=== PATIENT | female | born 1985 | race Caucasian/White ===

== ENCOUNTER → 2018-01-24 08:34 | Outpatient (CLI) | payer OTHER, SELFPAY ==
--- NOTE | 2018-01-24 08:39 | DI.RAD.S_ITS ---
PROCEDURE: XR WRIST RT MIN 3V INDICATIONS: 32 y/o F w/ R ulnar-sided wrist pain x 1 mo. TECHNIQUE: 4 views of the wrist were acquired. COMPARISON: None. FINDINGS: Bones: No fractures or dislocations. No suspicious bony lesions. Scaphoid view: No fracture identified. Soft tissues: No suspicious soft tissue calcifications. IMPRESSION: No fracture Dictated by: Mitchel Dumont M.D. on 01/24/2018 at 9:10 Approved by: Mitchel Dumont M.D. on 01/24/2018 at 9:11
== END ==
PROVIDERS: Family Provider Family Medicine; PCP Family Medicine; Visit Provider Physician Assistant
DX: M25.531 Pain in right wrist (principal)
CPT/HCPCS: 73110

== ENCOUNTER → 2019-01-19 09:56 | Outpatient (CLI) | payer OTHER, SELFPAY ==
[2019-01-19 11:28] LABS: Add Manual Diff / Slide Review NO; Basophils Absolute Auto 0 /uL (0-100); Basophils Percent Auto 0.8 % (0-2); Eosinophils Absolute Auto 0 /uL (0-450); Eosinophils Percent Auto 1.1 % (2-4); Hematocrit 39.6 % (36-46); Hemoglobin 13.4 g/dL (12.0-16.0); Lymphocytes Absolute Auto 1400 /uL (1100-4500); Lymphocytes Percent Auto 36.1 % (25-40); Mean Corpuscular HGB Conc 33.9 % (30-36); Mean Corpuscular Hemoglobin 31.2 PG (26-34); Mean Corpuscular Volume 92.1 fL (80-100); Monocytes Absolute Auto 600 /uL (0-900); Monocytes Percent Auto 14.5 % (3-14); Neutrophils Absolute Auto 1900 /uL (1500-7000); Neutrophils Percent Auto 47.5 % (50-75); Platelet Count 241 X10^3/uL (150-400)
[2019-01-19 11:42] LABS: Protein (Total) Urine Random 15 mg/dL (0-12)
[2019-01-19 11:45] LABS: Alanine Aminotransferase 11 IU/L (9-52); Albumin 4.3 g/dL (3.5-5.0); Albumin Globulin Ratio 1.6 (1.0-2.8); Alkaline Phosphatase 36 U/L (38-126); Aspartate Aminotransferase 19 IU/L (14-36); BUN Creatinine Ratio 14.3 (6-22); Bilirubin Total 0.6 mg/dL (0.2-1.3); Blood Urea Nitrogen 10 mg/dL (7-17); Calcium 9.5 mg/dL (8.4-10.2); Carbon Dioxide 28 mmol/L (22-32); Chloride 103 mmol/L (98-107); Estimated Glomerular Filt Rate > 60.0 mL/min (>60); Globulin 2.7 g/dL (1.7-4.1); Glucose 74 mg/dL (70-100); HEMOLYSIS < 15 (0-50); Lipase 97 U/L (23-300); Potassium 3.9 mmol/L (3.4-5.1); Sodium 141 mmol/L (137-145)
[2019-01-19 11:47] LABS: HEMOLYSIS < 15 (0-50); Iron 147 ug/dL (37-170)
[2019-01-19 11:55] LABS: Vitamin D 25 Hydroxy (D3) 58.1 ng/mL (30.0-100.0)
[2019-01-19 11:58] LABS: Percent Iron Saturation 40 % (15-50); Total Iron Binding Capacity 371 ug/dL (265-497); Transferrin 316 mg/dL (206-381)
[2019-01-19 12:31] LABS: Vitamin B12 349 pg/mL (239-931)
[2019-01-19 14:34] LABS: Creatinine Urine Random 75.8 mg/dL; Protein Creatinine Ratio Urine 0.19 GRAM/24H
== END ==
PROVIDERS: PCP Student in an Organized Health Care Education/Training Program; Visit Provider Student in an Organized Health Care Education/Training Program
DX: D50.9 Iron deficiency anemia, unspecified (principal); E28.2 Polycystic ovarian syndrome; R10.9 Unspecified abdominal pain; E55.9 Vitamin D deficiency, unspecified; R53.83 Other fatigue
CPT/HCPCS: 36415; 80053; 82306; 82570; 82607; 83540; 83550; 83690; 84156; 85025

== ENCOUNTER → 2019-01-20 07:47 | Outpatient (CLI) | payer OTHER, SELFPAY ==
--- NOTE | 2019-01-20 07:49 | DI.US.S_ITS ---
PROCEDURE: US RENAL COMPLETE INDICATIONS: FLANK PAIN TECHNIQUE: Real-time scanning was performed of the kidneys and bladder, with image documentation. COMPARISON: [facility], CT, ABDOMEN/PELVIS WITH CONTRAST, 11/07/2010, 10:24. FINDINGS: Kidneys: Kidneys are normal in size. Right kidney measures 11.6 cm long; left kidney measures 10.9 cm long. Right renal cortical thickness is 1.2 cm; left renal cortical thickness is 1.7 cm. Renal cortical echotexture is normal. No hydronephrosis or nephrolithiasis. No suspicious solid mass lesions. Bladder: Pre-void bladder volume is 74 mL. Post-void residual is 0 mL. Pre-void images demonstrate no intraluminal masses or stones. On pre-void images, bilateral ureteral jets are noted with color Doppler interrogation. Miscellaneous: No free pelvic fluid. IMPRESSION: Normal sonographic appearance of the kidneys. No hydronephrosis. No kidney stones seen. Dictated by: Tre RUTH Interpreted: Robert Gilman MD on 01/20/2019 at 9:30 Approved by: Robert Gilman M.D. on 01/20/2019 at 11:47
== END ==
PROVIDERS: PCP Student in an Organized Health Care Education/Training Program; Visit Provider Student in an Organized Health Care Education/Training Program
DX: R10.9 Unspecified abdominal pain (principal); D50.9 Iron deficiency anemia, unspecified; R53.83 Other fatigue
CPT/HCPCS: 76770

== ENCOUNTER → 2020-01-24 17:10 | Outpatient (CLI) | payer OTHER, SELFPAY ==
--- NOTE | 2020-01-24 17:14 | DI.RAD.S_ITS ---
PROCEDURE: XR FOOT RT MIN 3V INDICATIONS: R foot pain w/ambulation suspect stress Fx vs sprain TECHNIQUE: 3 views of the foot were acquired. COMPARISON: None. FINDINGS: Bones: No fractures or dislocations. No suspicious bony lesions. Soft tissues: No tibiotalar joint effusion. Achilles tendon appears normal. IMPRESSION: No radiographic evidence of stress fracture. No findings to explain patient's symptoms. Dictated by: Johann Yepez M.D. on 01/24/2020 at 17:42 Approved by: Johann Yepez M.D. on 01/24/2020 at 17:42
== END ==
PROVIDERS: PCP Student in an Organized Health Care Education/Training Program; Referring Provider Student in an Organized Health Care Education/Training Program; Visit Provider Student in an Organized Health Care Education/Training Program
DX: M79.671 Pain in right foot (principal)
CPT/HCPCS: 73630

== ENCOUNTER → 2020-08-18 08:44 | Outpatient (CLI) | payer OTHER, SELFPAY ==
--- NOTE | 2020-08-18 08:45 | DI.US.S_ITS ---
LIMITED ULTRASOUND OF LEFT BREAST AND AXILLA: 08/18/2020 CLINICAL: Palpable left breast lump. Comparison is made to exams dated: 08/18/2020 mammogram, 11/24/2012, and 11/24/2012 mammogram - [facility]. Real-time ultrasound of the left breast 12 o'clock, and axilla regions was performed. George scale images of the real-time examination were reviewed. No significant abnormalities were seen sonographically in the left breast in the region of the palpable abnormality or in the left axilla. IMPRESSION: NEGATIVE There is no sonographic evidence of malignancy at site of palpable abnormality. A 5 year screening mammogram is recommended at the age of 39. Exam findings were conveyed to the patient. Patient is advised to monitor for significant change. Clinical follow-up as needed. This exam was interpreted at Station ID: [id number]. Electronically Signed By: Robert Gilman M.D. slc/:08/18/2020 11:00:48 letter sent: Normal Exam Ultrasound BI-RADS: 1 Negative
--- NOTE | 2020-08-18 08:45 | DI.MG.S_ITS ---
BILATERAL DIGITAL DIAGNOSTIC MAMMOGRAM 3D/2D: 08/18/2020 CLINICAL: Dense breast, Breast lump. Comparison is made to exams dated: 11/24/2012 mammogram and 12/18/2011 mammogram - [facility]. The tissue of both breasts is extremely dense, which lowers the sensitivity of mammography. No significant masses, calcifications, or other findings are seen in either breast. IMPRESSION: INCOMPLETE: NEEDS ADDITIONAL IMAGING EVALUATION No mammographic evidence of malignancy. A targeted ultrasound of the left breast palpable abnormality is recommended and will immediately follow. This exam was interpreted at Station ID: [id number]. NOTE: For mammograms, a report in lay terms will be sent to the patient. Approximately 15% of breast malignancies will not be visualized mammographically. In the management of a palpable breast mass, a negative mammogram must not discourage biopsy of a clinically suspicious lesion. Electronically Signed By: Robert Gilman M.D. slc/:08/18/2020 10:56:35 ACR BI-RADS Category 0: Incomplete [id number]
== END ==
PROVIDERS: PCP Student in an Organized Health Care Education/Training Program; Referring Provider Obstetrics & Gynecology; Visit Provider Obstetrics & Gynecology
DX: R92.2 Inconclusive mammogram (principal); N63.20 Unspecified lump in the left breast, unspecified quadrant
CPT/HCPCS: 76642; 77066; G0279

== ENCOUNTER → 2021-05-01 12:17 | Outpatient (CLI) | payer OTHER, SELFPAY ==
[2021-05-01 12:53] LABS: Hematocrit 38.5 % (36-46); Hemoglobin 12.9 g/dL (12.0-16.0); Mean Corpuscular HGB Conc 33.4 % (30-36); Mean Corpuscular Hemoglobin 30.8 PG (26-34); Mean Corpuscular Volume 92.2 fL (80-100); Platelet Count 249 X10^3/uL (150-400); Red Blood Cell Count 4.17 X10^6/uL (4.0-5.2); Red Cell Distribution Width 12.8 % (11.6-14.8); White Blood Cell Count 4.4 X10^3/uL (4.5-11.0)
[2021-05-01 13:56] LABS: HEMOLYSIS < 15 (0-50); Iron 133 ug/dL (37-170)
[2021-05-01 13:57] LABS: Cholesterol 190 mg/dL (140-199); HDL Cholesterol 70 mg/dL (40-60); LDL Cholesterol Calculated 103 mg/dL (<100); Triglycerides 85 mg/dL (35-150)
[2021-05-01 14:09] LABS: Percent Iron Saturation 38 % (15-50); Total Iron Binding Capacity 349 ug/dL (265-497); Transferrin 273 mg/dL (206-381)
[2021-05-01 14:34] LABS: Ferritin 16 ng/mL (6-137)
== END ==
PROVIDERS: PCP Student in an Organized Health Care Education/Training Program; Referring Provider Student in an Organized Health Care Education/Training Program; Visit Provider Student in an Organized Health Care Education/Training Program
DX: D50.9 Iron deficiency anemia, unspecified (principal); Z13.220 Encounter for screening for lipoid disorders
CPT/HCPCS: 36415; 80061; 82728; 83540; 83550; 85027

== ENCOUNTER → 2021-05-17 16:09 | Outpatient (CLI) | payer OTHER, SELFPAY ==
--- NOTE | 2021-05-17 16:10 | DI.US.S_ITS ---
PROCEDURE: US ABDOMEN LIMITED INDICATIONS: Inguinal hernia TECHNIQUE: Real-time focused scanning was performed of the abdomen, with image documentation. COMPARISON: [facility], CT, ABDOMEN/PELVIS WITH CONTRAST, 11/07/2010, 10:24. FINDINGS: At the site of clinical concern within the right groin, there is a small apparent reducible hernia which contains fat. The hernia defect is approximately 5 mm. IMPRESSION: Small fat containing, reducible hernia seen at the site of clinical concern. Please consider surgical consultation. If it would be helpful for clinical management decision making in this patient with this given history, please consider a dedicated CT of the pelvis with at least IV contrast for further evaluation. Dictated by: Jario Avelar M.D. on 05/17/2021 at 17:02 Approved by: Jairo Avelar M.D. on 05/17/2021 at 17:04
== END ==
PROVIDERS: PCP Student in an Organized Health Care Education/Training Program; Referring Provider Obstetrics & Gynecology; Visit Provider Obstetrics & Gynecology
DX: K40.90 Unilateral inguinal hernia, without obstruction or gangrene, not specified as recurrent (principal)
CPT/HCPCS: 76705

== ENCOUNTER → 2021-06-29 13:36 | Outpatient (CLI) | payer OTHER, SELFPAY ==
[2021-06-29 14:36] LABS: COVID19 -Nasal RAPID Negative (Negative)
== END ==
PROVIDERS: PCP Student in an Organized Health Care Education/Training Program; Visit Provider Surgery
DX: Z01.812 Encounter for preprocedural laboratory examination (principal); Z20.822 Contact with and (suspected) exposure to COVID-19
CPT/HCPCS: 87635; C9803

== ENCOUNTER 2021-07-02 06:26 | Day surgery (SDC) | payer OTHER, SELFPAY ==
[2021-06-28 12:53] VITALS: BMI 22.4
[2021-07-02] VITALS (11 sets, daily range): BP systolic 98–116; BP diastolic 52–70; PULSE 55–78; RESP 10–16; TEMP 36.3–36.8; O2SAT 94–100; BMI 22.4
[2021-07-02] MEDS: LACTATED RINGERS 1,000 ML 42 ML IV ×2 (07:30→09:32)
--- NOTE | 2021-07-02 07:32 | PM.PREOP ---
Pre-operative Note COVID-19 COVID-19 status: Negative Result date/Date tested (Pos, Neg/Pending): 06/29/21 Interval Note History & Physical reviewed/Exam performed by Physician: Yes Changes to H&P: No ASA Class (for procedural sedation): I
--- NOTE | 2021-07-02 07:34 | PM.HP.1 ---
History of Present Illness History of Present Illness Date Patient Seen: 07/02/21 Time Patient Seen: 07:34 Chief complaint: Right inguinal hernia Narrative: 35 year old woman who noticed a right inguinal bulge a few months ago. It is reducible. Also believes she feels a tugging sensation from the left groin. She has had an umbilical hernia repair in the past. Mesh was not placed at that time. Patient History Medical History (Updated 06/28/21 @ 13:02 by Roya Brown RN) Adverse effect of anesthesia Alopecia Bilateral breast lump Chronic sinusitis Coracoclavicular (ligament) sprain (2012) Depression Headache, migraine Iron deficiency anemia PCOS (polycystic ovarian syndrome) Plantar warts Sprain of shoulder, left (2012) Surgical History (Updated 06/28/21 @ 13:02 by Roya Brown RN) Hx of hernia repair (09/2015) Hx of tonsillectomy (~2009) Hx of wisdom tooth extraction Family & Social History Family History Father Hypertension Mother No problems noted. Tobacco & Substance use: Smoking Status Never smoker alcohol intake current Substance Use Type does not use Meds Home Medications and Allergies Home Medications Medication Instructions Recorded Confirmed Type [FIBER] #0 10/13/17 06/26/21 History [HAIR VITAMINS] #0 10/13/17 06/26/21 History calcium carbonate 600 mg-vitamin 1 cap PO cap 12/25/17 06/26/21 History D3 10 mcg (400 unit) capsule (Calcium 600 with Vitamin D3) Necon 0.5/35 (28) 0.5 mg-35 mcg 1 tab PO DAILY #90 tab NS 04/27/21 07/02/21 Rx tablet (norethindrone-ethin estradiol) fluocinonide 0.05 % topical 1 applic TOPICAL .3 time weekly ml 05/01/21 07/02/21 History solution ketoconazole 2 % shampoo 1 applic TOPICAL 2XW 05/01/21 06/28/21 History tretinoin TOPICAL 05/01/21 06/26/21 History vitamin B complex (B 1 tab PO DAILY 05/01/21 06/28/21 History Complex-Vitamin B12) Allergies Allergy/AdvReac Type Severity Reaction Status Date / Time No Known Drug Allergies Allergy Verified 07/02/21 07:08 Exam Vital Signs (past 8 hours): - 07/02/21 07:12 Temperature 98 F Pulse Rate 61 Respiratory Rate 16 Blood Pressure 111/65 Pulse Oximetry 98 Oxygen Delivery Method Room Air Const General: healthy appearing Eyes General: appearance normal, both eyes and all related structures Resp Effort & Inspection: normal respiratory effort GI Other: Reducible right inguinal hernia Small infraumbilical surgical scar Assessment & Plan Assessment and plan (1) Inguinal hernia: Qualifiers: Obstruction and gangrene presence: without obstruction or gangrene Laterality: unilateral Recurrence: non-recurrent Qualified Code(s): K40.90 - Unilateral inguinal hernia, without obstruction or gangrene, not specified as recurrent Status: Acute Plan Laparoscopic right, possible left inguinal hernia repair with mesh. She would like to proceed. Time Spent With Patient Critical Care time: I spent a total of [] minutes of critical care time on this patient's care today; this time is exclusive of procedural time.
[2021-07-02] MEDS: ACETAMINOPHEN 325 MG TABLET 975 MG PO (07:41)
--- NOTE | 2021-07-02 07:42 | SUR.PREOP ---
Pt states she took Exedrin for a migraine 07/01/21 at 0800. Pt states she gets migraines from concussions.
--- NOTE | 2021-07-02 07:47 | SUR.PREOP ---
Urine test negative.
[2021-07-02] MEDS: CEFAZOLIN 2 GM/20 ML SYRINGE IV (08:05)
--- NOTE | 2021-07-02 08:19 | SUR.OPER ---
Supine on padded OR bed, head on pillow, arms padded and tucked at sides, legs uncrossed, safety belt at thigh, tape over blanket over lower legs .
[2021-07-02] MEDS: BUPIVACAINE 0.5% W/ EPI (PF) 30 ML VIAL INJ (08:28)
--- NOTE | 2021-07-02 09:43 | P.OP_ITS ---
Operative Date/Time/Diagnoses Date of procedure: 07/02/21 Time of procedure: 09:43 Pre-op diagnosis: Right inguinal hernia Post-op diagnosis: same Procedure & Clinicians Procedure: Laparoscopic right inguinal hernia repair with mesh Same procedure as scheduled: Yes Indications: Right inguinal hernia Surgeon: Jose D Burnett Click Yes if Unassisted: No Anesthesia Type: General Operative Notes Findings: Small indirect defect Estimated Blood Loss (mL): 10 Procedure in detail: The patient was given preoperative antibiotics. The patient was brought to the operating room, placed on the table in the supine position with the arms tucked and general anesthesia was induced. The abdomen was prepped and draped in the usual fashion. A time-out was performed. A 1 cm curvilinear infraumbilical incision was created and dissection was carried down to the base of the umbilical stalk. The umbilical stalk was grasped with a Opal clamp to elevate the abdominal wall. The fascia was scored transversely with cautery. A Peon clamp was used to mcnamara the peritoneum. The Shawn port was placed and the abdomen was insufflated to 15 mmHg. The camera was inserted, there was no evidence of any injury from the entry. There is a small indirect right inguinal hernia and no left inguinal hernia. 5 mm ports were placed under direct vision in the mid left and mid right abdomen. The patient was positioned in steep Trendelenburg. We created right peritoneal flap. The peritoneum was dissected off of the round ligament and the Jaxon's ligament was exposed. A a medium right Bard mesh was brought in and placed over the defect with the medial edge against Jaxon's ligament. We then closed the peritoneal flap with a running 3- 0 barbed suture. We took 1 last look around the abdomen and saw no other abnormalities. The suture was removed and accounted for. The 5 mm ports were removed under direct vision. The abdomen was desufflated. The Shawn port was removed. Additional local was injected into the fascia and the infraumbilical fascial incision was closed with 2 interrupted 0 Vicryl sutures. The skin incisions were closed with 4 Monocryl, Steri-Strips and Band-Aids. Post-operative Condition: stable Disposition: PACU
[2021-07-02] MEDS: ONDANSETRON 4 MG/2 ML INJ IV ×2 (10:03→10:32)
--- NOTE | 2021-07-02 11:10 | SUR.PHASEII ---
Family updated on pt status.
--- NOTE | 2021-07-02 12:45 | SUR.PHASEII ---
1245 Has been out of surgery for two hours. Was queasy for awhile but finally letting up. Getting dressed to send home
--- NOTE | 2021-07-02 16:09 | P.OP_ITS ---
Operative Date/Time/Diagnoses Date of procedure: 07/02/21 Time of procedure: 16:09 Pre-op diagnosis: Left inguinal hernia Post-op diagnosis: same Procedure & Clinicians Procedure: Laparoscopic left inguinal hernia repair with mesh Same procedure as scheduled: Yes Indications: Left inguinal hernia Surgeon: Jose D Burnett Click Yes if Unassisted: Yes Anesthesia Type: General Operative Notes Estimated Blood Loss (mL): 10 Procedure in detail: The patient was given preoperative antibiotics. The patient was brought to the operating room, placed on the table in the supine position with the arms tucked and general anesthesia was induced. The abdomen was prepped and draped in the usual fashion. A time-out was performed. A 1 cm curvilinear infraumbilical incision was created and dissection was carried down to the base of the umbilical stalk. The umbilical stalk was grasped with a Opal clamp to elevate the abdominal wall. The fascia was scored transversely with cautery. A Peon clamp was used to mcnamara the peritoneum. The Shawn port was placed and the abdomen was insufflated to 15 mmHg. The camera was inserted, there was no evidence of any injury from the entry. There was a indirect left inguinal hernia. 5 mm ports were placed under direct vision in the mid left and mid right abdomen. The patient was positioned in steep Trendelenburg. We created l eft peritoneal flap. The peritoneum was dissected off of the cord and vas deferens and the Jaxon's ligament was exposed. A a medium right Bard mesh was brought in and placed over the defect with the medial edge against Jaxon's ligament. We then closed the peritoneal flap with a running 3-0 barbed suture. We took one last look around the abdomen and saw no other abnormalities. The suture was removed and accounted for. The 5 mm ports were removed under direct vision. The abdomen was desufflated. The Shawn port was removed. Additional local was injected into the fascia and the infraumbilical fascial incision was closed with 2 interrupted 0 Vicryl sutures. The skin incisions were closed with 4 Monocryl, Steri-Strips and Band-Aids. Post-operative Condition: stable Disposition: PACU
== END 2021-07-02 12:55 | disposition home or self-care (01) ==
PROVIDERS: PCP Student in an Organized Health Care Education/Training Program; Referring Provider Surgery; Visit Provider Surgery
PROC: 0YQ54ZZ Repair Right Inguinal Region, Percutaneous Endoscopic Approach (ICD-10-PCS; CPT 49650; principal; 2021-07-02 07:45)
DX: K40.90 Unilateral inguinal hernia, without obstruction or gangrene, not specified as recurrent (principal)
CPT/HCPCS: 49650; C1781; J0330; J0690; J1100; J2405; J2704; J3010

== ENCOUNTER → 2021-07-06 09:26 | Outpatient (CLI) | payer OTHER, SELFPAY ==
[2021-07-06 09:56] LABS: Appearance Urine UA CLEAR; Bilirubin Urine UA NEGATIVE (NEGATIVE); Color Urine UA YELLOW; Glucose Urine UA NEGATIVE (Negative); Ketones Urine UA NEGATIVE (NEGATIVE); Leukocyte Esterase Urine UA 1+ (NEGATIVE); Nitrite Urine UA NEGATIVE (Negative); Occult Blood Urine UA TRACE-INTACT (Negative); Protein Urine UA NEGATIVE (Negative); Specific Gravity Urine UA 1.015 (1.000-1.035); Urobilinogen Urine UA 0.2 E.U./dL (0.2)
[2021-07-06 10:10] LABS: RBC Urine 0-1/HPF (0-5/HPF); WBC Urine 5-10/HPF (0-5/HPF)
[2021-07-06 10:11] LABS: Bacteria Urine Many (>30); Culture Indicated Urine Specimen Cultured; Squamous Epithelial Cell Urine 1-5 /HPF (0-5/HPF)
== END ==
PROVIDERS: PCP Student in an Organized Health Care Education/Training Program; Referring Provider Student in an Organized Health Care Education/Training Program; Visit Provider Student in an Organized Health Care Education/Training Program
DX: R10.9 Unspecified abdominal pain (principal)
CPT/HCPCS: 81001; 87086

== ENCOUNTER → 2021-07-19 16:06 | Outpatient (CLI) | payer OTHER, SELFPAY ==
[2021-07-19 17:06] LABS: Appearance Urine UA CLEAR; Bilirubin Urine UA NEGATIVE (NEGATIVE); Color Urine UA YELLOW; Glucose Urine UA NEGATIVE (Negative); Ketones Urine UA NEGATIVE (NEGATIVE); Leukocyte Esterase Urine UA NEGATIVE (NEGATIVE); Nitrite Urine UA NEGATIVE (Negative); Occult Blood Urine UA 2+ (Negative); Protein Urine UA NEGATIVE (Negative); Urobilinogen Urine UA 0.2 E.U./dL (0.2)
[2021-07-19 17:22] LABS: Amorphous Sediment Urine 2+; Bacteria Urine Few (2-10); Culture Indicated Urine Cult Not Indicated; RBC Urine 1-5/HPF (0-5/HPF); Squamous Epithelial Cell Urine 5-10 /HPF (0-5/HPF); WBC Urine None Seen (0-5/HPF)
== END ==
PROVIDERS: PCP Student in an Organized Health Care Education/Training Program; Referring Provider Student in an Organized Health Care Education/Training Program; Visit Provider Student in an Organized Health Care Education/Training Program
DX: N39.0 Urinary tract infection, site not specified (principal)
CPT/HCPCS: 81001

== ENCOUNTER → 2021-10-13 10:29 | Outpatient (CLI) | payer OTHER, SELFPAY ==
[2021-10-13 10:52] LABS: Appearance Urine UA SL CLOUDY; Bilirubin Urine UA NEGATIVE (NEGATIVE); Color Urine UA YELLOW; Glucose Urine UA NEGATIVE (Negative); Ketones Urine UA NEGATIVE (NEGATIVE); Leukocyte Esterase Urine UA NEGATIVE (NEGATIVE); Nitrite Urine UA NEGATIVE (Negative); Occult Blood Urine UA 1+ (Negative); Protein Urine UA NEGATIVE (Negative); Specific Gravity Urine UA 1.025 (1.000-1.035); Urobilinogen Urine UA 0.2 E.U./dL (0.2)
[2021-10-13 11:05] LABS: Amorphous Sediment Urine 1+; Bacteria Urine Many (>30); Calcium Oxalate Crystals Urine Occasional; Culture Indicated Urine Specimen Cultured; Mucus Urine 2+ (Negative); RBC Urine 1-5/HPF (0-5/HPF); Squamous Epithelial Cell Urine 1-5 /HPF (0-5/HPF); WBC Urine 10-30/HPF (0-5/HPF)
== END ==
PROVIDERS: PCP Student in an Organized Health Care Education/Training Program; Referring Provider Student in an Organized Health Care Education/Training Program; Visit Provider Student in an Organized Health Care Education/Training Program
DX: R10.9 Unspecified abdominal pain (principal)
CPT/HCPCS: 81001; 87086

== ENCOUNTER → 2021-11-27 09:35 | Outpatient (CLI) | payer OTHER, SELFPAY ==
--- NOTE | 2021-11-27 09:40 | DI.CT.S_ITS ---
PROCEDURE: CT ABDOMEN PELVIS WO CON INDICATIONS: Hematuria TECHNIQUE: Axial sections were acquired from the lung bases to the pubic symphysis. Coronal and sagittal reformats were performed. For radiation dose reduction, the following was used: automated exposure control, adjustment of mA and/or kV according to patient size. COMPARISON: [facility], CT, ABDOMEN/PELVIS WITH CONTRAST, 11/07/2010, 10:24. FINDINGS: Image quality: Excellent. Lung bases: A 6 mm pleural-based nodules present in the posteromedial right lower lobe, stable. Lung bases are otherwise clear. Heart: Normal size heart. No hiatal hernia. URINARY: Right Kidney: No stones or hydronephrosis. Right Ureter: No hydroureter. Left Kidney: No stones or hydronephrosis. Left Ureter: No hydroureter. Bladder: Decompressed urinary bladder. No calcifications visible. ABDOMEN: Liver: The liver is normal size and attenuation. There is a 9 mm cyst in the anterior left lobe. Gallbladder: Normal. Biliary ducts: Nondilated. Pancreas: Normal contour. Spleen: Normal size. Adrenal Glands: No nodules. Stomach and Bowel: Stomach, small bowel loops, and colon are unremarkable. Normal appendix. Peritoneum: No abnormal intraperitoneal fluid. No free air. Ventral Wall: No hernia. Abdominal Nodes: No enlarged retroperitoneal or mesenteric lymph nodes. Vessels: Aorta and inferior vena cava are normal in size. PELVIS: Pelvic Organs: Normal uterus and ovaries. Bladder: Normal wall thickness. Pelvic Nodes: No suspicious adenopathy. Miscellaneous: No soft tissue mass or inguinal hernias. Bones: Exaggerated lower lumbar lordosis. Otherwise normal osseous structures. IMPRESSION: 1. No urinary calcifications or obstructive uropathy. Dictated by: Cami Carranza M.D. on 11/28/2021 at 9:11 Approved by: Cami Carranza M.D. on 11/28/2021 at 9:35
== END ==
PROVIDERS: PCP Student in an Organized Health Care Education/Training Program; Referring Provider Student in an Organized Health Care Education/Training Program; Visit Provider Student in an Organized Health Care Education/Training Program
DX: R10.9 Unspecified abdominal pain (principal); R31.9 Hematuria, unspecified; R91.8 Other nonspecific abnormal finding of lung field; K76.89 Other specified diseases of liver
CPT/HCPCS: 74176

== ENCOUNTER → 2022-09-20 14:32 | Outpatient (CLI) | payer OTHER, SELFPAY ==
--- NOTE | 2022-09-20 14:33 | DI.CT.S_ITS ---
PROCEDURE: CT ABDOMEN PELVIS W CON INDICATIONS: Right groin bulge TECHNIQUE: After the administration of intravenous contrast, axial sections acquired from the lung bases to the pubic symphysis. Coronal and sagittal reformats were performed. For radiation dose reduction, the following was used: automated exposure control, adjustment of mA and/or kV according to patient size. COMPARISON: [facility], CT, ABDOMEN/PELVIS WITH CONTRAST, 11/07/2010, 10:24. FINDINGS: Image quality: Excellent. Lung bases: Unremarkable. Heart: No significant findings. ABDOMEN: Liver: Subcentimeter hypoattenuating lesions, too small to characterize by CT, but probably small cysts. Gallbladder: Unremarkable. Biliary ducts: Unremarkable. Pancreas: Unremarkable. Spleen: Unremarkable. Adrenal Glands: Unremarkable. Kidneys and Ureters: Unremarkable. Stomach and Bowel: Stomach, small bowel loops, and colon are unremarkable. Peritoneum: No abnormal intraperitoneal fluid. No free air. Ventral Wall: No hernias. Abdominal Nodes: No retroperitoneal or mesenteric adenopathy by size criteria. Vessels: Aorta and inferior vena cava are normal in size. PELVIS: Pelvic Organs: Unremarkable. Bladder: Unremarkable. Pelvic Nodes: No enlarged lymph nodes. Miscellaneous: No hernias are seen. Bones: No aggressive osseous abnormality. Bone island in the right pelvic wing and T10 vertebral body. IMPRESSION: No acute findings to explain the patient's right groin bulge. No hernia on this exam. Dictated by: Kenn Watson M.D. on 09/20/2022 at 15:05 Approved by: Kenn Watson M.D. on 09/20/2022 at 15:10
== END ==
PROVIDERS: PCP Student in an Organized Health Care Education/Training Program; Referring Provider Surgery; Visit Provider Surgery
DX: K40.90 Unilateral inguinal hernia, without obstruction or gangrene, not specified as recurrent (principal)
CPT/HCPCS: 74177

== ENCOUNTER 2022-09-30 09:24 | Day surgery (SDC) | payer OTHER, SELFPAY ==
[2022-09-19 13:37] VITALS: BMI 22.1
[2022-09-30 09:35] VITALS: BP 129/73; PULSE 67; RESP 18; TEMP 36.8; O2SAT 99; BMI 22.1
--- NOTE | 2022-09-30 09:44 | PM.PREOP ---
Pre-operative Note COVID-19 COVID-19 status: Not tested Interval Note History & Physical reviewed/Exam performed by Physician: Yes Changes to H&P: No ASA Class (for procedural sedation): I
[2022-09-30] MEDS: CEFAZOLIN 2 GM/100 ML PREMIX 100 ML IV (10:19)
--- NOTE | 2022-09-30 10:25 | SUR.OPER ---
Supine on padded OR bed, head on pillow, arms secured on padded arm boards at <90 degrees abduction, legs uncrossed, safety belt at thigh, tape over blanket over lower legs. Pt positioned per direction and supervision of Dr Burnett.
[2022-09-30] MEDS: SCOPOLAMINE 1 PATCH TOP (10:31)
[2022-09-30] MEDS: BUPIVACAINE 0.25% W/ EPI 30 ML VIAL INJ (10:33)
--- NOTE | 2022-09-30 11:30 | PM.OP.1 ---
Operative Date/Time/Diagnoses Date of procedure: 09/30/22 Time of procedure: 11:30 Pre-op diagnosis: Recurrent right inguinal hernia Post-op diagnosis: same Procedure & Clinicians Procedure: Open right inguinal hernia repair mesh Same procedure as scheduled: Yes Surgeon: Jose D Burnett Anesthesia Type: General Operative Notes Procedure in detail: Preoperative antibiotic was administered. The patient was brought to the operating room and placed on the table in supine position general anesthesia was induced. The right groin was prepped and draped in the normal fashion and a time-out was performed. Roughly 10 mL of local anesthetic were injected into the skin and subcutaneous adipose tissue over the right groin. A 5 cm incision was made over the right inguinal canal. Dissection was carried down through the subcutaneous adipose tissue. We exposed the external oblique aponeurosis in the direction of the fibers. Additional local was injected deep to the aponeurosis. A 15 blade scalpel was used to leonela the external oblique aponeurosis. Metzenbaum scissors were used to carefully open the aponeurosis in the direction of the fibers taking care not to injure the underlying ilioinguinal nerve which was well seen and protected. We completely exposed the inguinal canal. The fatty contents of the hernia were reduced back through the internal ring. A 3-0 Vicryl stitch was placed in a [id number] fashion to close up the internal ring. We then trimmed piece of polypropylene mesh to fit the floor of the inguinal canal. The mesh was secured with multiple interrupted 3-0 Prolene sutures to the pubic tubercle and shelving edge of the inguinal ligament as well as to the conjoint tendon medially. Laterally the edge of the mesh was secured to ligament. We injected some more local into the fatty tissue in the inguinal canal and cord. Finally, we closed the external oblique fascia with a running 3-0 Vicryl suture. Skin was closed with interrupted 3-0 Vicryl dermal sutures and a running 4 Monocryl subcuticular stitch. EBL 5 mL The patient was awakened and brought to recovery room. Post-operative Condition: stable Disposition: PACU
[2022-09-30 11:33] VITALS: BP 99/55; PULSE 77; RESP 14; TEMP 36.4; O2SAT 100
[2022-09-30 11:39] VITALS: BP 88/54; PULSE 67; RESP 14; O2SAT 99
[2022-09-30 11:44] VITALS: BP 96/54; PULSE 64; RESP 16; O2SAT 99
[2022-09-30 11:49] VITALS: BP 95/61; PULSE 60; RESP 16; O2SAT 99
[2022-09-30 11:52] VITALS: BP 95/61; PULSE 64; RESP 16; O2SAT 99
== END 2022-09-30 12:34 | disposition home or self-care (01) ==
PROVIDERS: PCP Student in an Organized Health Care Education/Training Program; Referring Provider Surgery; Visit Provider Surgery
PROC: (CPT 49520; principal; 2022-09-30 10:45)
DX: K40.91 Unilateral inguinal hernia, without obstruction or gangrene, recurrent (principal)
CPT/HCPCS: 49520; 81025; J0690; J1100; J1885; J2250; J2405; J2704; J3010

== ENCOUNTER → 2022-10-03 13:16 | Outpatient (CLI) | payer OTHER, SELFPAY ==
[2022-10-03 13:28] LABS: Appearance Urine UA CLEAR; Bilirubin Urine UA NEGATIVE (NEGATIVE); Color Urine UA YELLOW; Glucose Urine UA NEGATIVE (Negative); Ketones Urine UA NEGATIVE (NEGATIVE); Leukocyte Esterase Urine UA NEGATIVE (NEGATIVE); Nitrite Urine UA NEGATIVE (Negative); Occult Blood Urine UA NEGATIVE (Negative); Protein Urine UA NEGATIVE (Negative); Urobilinogen Urine UA 0.2 E.U./dL (0.2)
[2022-10-03 13:29] LABS: pH Urine UA 6.5 (4.5-8.0)
[2022-10-03 13:35] LABS: Bacteria Urine None Seen; Culture Indicated Urine Cult Not Indicated; RBC Urine None Seen (0-5/HPF); Urine Comments Microscopic Normal; WBC Urine None Seen (0-5/HPF)
== END ==
PROVIDERS: PCP Student in an Organized Health Care Education/Training Program; Referring Provider Student in an Organized Health Care Education/Training Program; Visit Provider Student in an Organized Health Care Education/Training Program
DX: R39.9 Unspecified symptoms and signs involving the genitourinary system (principal)
CPT/HCPCS: 81001

== ENCOUNTER 2023-08-06 13:45 | Outpatient (RCR) | payer OTHER, SELFPAY ==
--- NOTE | 2023-08-05 17:37 | PT.OIE ---
Current Diagnoses Pain in right wrist (08/05/23) Pain in right knee (08/05/23) Pain in left knee (08/05/23) Pain in right ankle and joints of right foot (08/05/23) Pain in left ankle and joints of left foot (08/05/23) Past Medical History (Last Reviewed 10/14/22 @ 10:45 by Leonidas Hernadez RN) Alopecia Capsulitis of metatarsophalangeal (MTP) joint of right foot Chronic sinusitis Coracoclavicular (ligament) sprain (2012) COVID-19 (10/2021) Dense breasts Depression Headache, migraine History of multiple concussions Iron deficiency anemia PCOS (polycystic ovarian syndrome) Plantar warts Simple right inguinal hernia Sprain of shoulder, left (2012) Past Surgical History (Last Reviewed 10/14/22 @ 10:45 by Leonidas Hernadez RN) Adverse effect of anesthesia History of right inguinal hernia repair Hx of hernia repair (09/2015) Hx of left inguinal hernia repair (07/02/21) Hx of tonsillectomy (~2009) Hx of wisdom tooth extraction Visit Care Team Role Provider Type Linda Golden MD Attending Provider Physician Family Provider Primary Care Provider Referring Provider Specialty: Family Practice Obstetrics Address: [address] [place] [address], [facility] Email: [email or web address] Physical Therapy Initial Evaluation PT-OP-A Visit Information Start: 08/04/23 10:09 Freq: Status: Active Protocol: Document 08/05/23 08:07 HENRIQUE (Rec: 08/05/23 09:01 [facility] [id number]) Out-Patient Physical Therapy Visit Information Visit Information Visit Type Initial Evaluation Visit Start Time 08:15 Visit Stop Time 09:02 Visit Number 1 Evaluation Information Evaluation Date 08/05/23 PT-OP-B Current Condition Start: 08/04/23 10:09 Freq: Status: Active Protocol: Document 08/05/23 08:07 HENRIQUE (Rec: 08/05/23 09:01 [facility] [id number]) Current Condition History of Current Condition Onset Date 2 years Current Complaints sunday knee pain, ankle pain and weakness, right forearm pain History of Current Condition 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 Wears braces that help some. Has always had weak ankles, can just fall over easily, more right than left. No exercises besides walking and working on boat. Wears metatarsal pad right, tends to lift big toe (top of shoe worn). Regarding right forearm and wrist pain patient states she was wearing tight bracelet, was lifting something heavy and felt a pop . Was working as a business management manager, had to wear brace. Pain mostly in her forearm, feels tight, some better with massage. Prior Treatments and Tests None except wearing braces on knees and wrist, some ice and heat. Treatment Goals Patient/Caregiver Goals decrease knee pain and wrist/ forearm pain, be able to resume all usual activities with min to no pain Prior Functional Status Baseline Function- ADL's Independent Baseline Function- Mobility Independent Baseline Function- Gait no limitations Baseline Function- Work/School no limitations Baseline Function- Recreation/Hobbies no limitations Current Functional Impairments (Reported) Functional Limitations- ADL's painful squat Functional Limitations- Mobility/Gait painful Functional Limitations- Work/School painful on boat Personal Factors Other Personal Factors That May Effect physical job Therapy/Recovery PT-OP-J Posture/Palpation/Skin Start: 08/04/23 10:09 Freq: Status: Active Protocol: Document 08/05/23 08:07 HENRIQUE (Rec: 08/05/23 09:01 [facility] [id number]) Posture Evaluation Position Standing Head/C-Spine Posture Forward Head L-Spine Posture Increased Lordosis Shoulder Posture (L) Rounded,(R) Rounded Scapula Posture (L) Protracted,(R) Protracted Arm Posture (L) Internally Rotated,(R) Internally Rotated Hip Posture (L) Neutral,(R) Neutral Knee Posture (L) Genu Recurvatum,(R) Genu Recurvatum Patellar Posture (L) Laterally Tilted,(R) Laterally Tilted Foot Arch (L) Low Arch,(R) Low Arch Comments Posture Comments right PSIS moves further with forward flexion trunk Palpation Assessment Location right forearm Palpation Location dorsal Palpation Findings Soft Tissue Tightness knees Palpation Details no tenderness to palpation PT-OP-M Strength Start: 08/04/23 10:09 Freq: Status: Active Protocol: Document 08/05/23 08:07 HENRIQUE (Rec: 08/05/23 09:01 [facility] [id number]) Elbow/Forearm Strength Elbow and Forearm Manual Muscle Testing sunday Flexion (C6) 4+ Good+ Extension (C7) 4+ Good+ Pronation 4+ Good+ Supination 4+ Good+ Comments denies pain Wrist Strength Wrist Manual Muscle Testing Right Flexion (C7) 4 Good Extension (C6) 4- Good- Ulnar Deviation 4 Good Radial Deviation 4 Good Left Flexion (C7) 5 Normal Extension (C6) 5 Normal Ulnar Deviation 4+ Good+ Radial Deviation 4+ Good+ Hip Strength Hip Manual Muscle Testing Left Flexion (L2) 4 Good Extension (S1) 4- Good- Abduction 4 Good Adduction 4- Good- External Rotation 4 Good Internal Rotation 4+ Good+ Right Flexion (L2) 4- Good- Extension (S1) 4- Good- Abduction 4 Good Adduction 4- Good- External Rotation 4 Good Internal Rotation 4+ Good+ Knee Strength Knee Manual Muscle Testing Left Flexion (S2) 4 Good Extension (L3) 4 Good Right Flexion (S2) 4 Good Extension (L3) 4 Good Ankle/Foot Strength Ankle and Foot Manual Muscle Testing Left Dorsiflexion (L4) 4 Good Plantarflexion (S1) 4 Good Inversion 4 Good Eversion (S1) 4 Good Right Dorsiflexion (L4) 4 Good Plantarflexion (S1) 4 Good Inversion 4 Good Eversion (S1) 4 Good PT-OP-T Assessment and Plan Start: 08/04/23 10:09 Freq: Status: Active Protocol: Document 08/05/23 08:07 [facility] (Rec: 08/05/23 09:01 [facility] [id number]) Physical Therapy Assessment Rehab Potential Rehabilitation Potential Good Evaluation Complexity Number of Personal Factors/Comorbidities 1-2 Number of Body Systems Impaired 3 Clinical Presentation at Evaluation Evolving Impairments Impairments Activity Tolerance,Gait,Pain, Strength Goals Four Impairment joint hypermobility and postural dysfunction Impairment patient stands and walks with recurvatum sunday knees contributing to pain and dysfunction. Hypermobility throughout body Short Term Goal (STG) Patient to be instructed in neutral posture neutral posture and joint protection STG Duration 09/05/23 Geotechnical Engineer Goal (LTG) Patient to demonstrate 75% decrease in recurvatum in both standing and walking for improved joint health LTG Duration 10/04/23 Three Impairment weakness Impairment weakness sunday hips and knees contriuting to lack of joint stability and pain Short Term Goal (STG) Patient to be instructed in HEP for purposes of strengthening and stabilization of sunday LE's, right forearm and wrist STG Duration 09/05/23 Detention Goal (LTG) Patient to be independent and compliant with HEP and demonstrate improvement in strength to 5/5 LTG Duration 10/04/23 Two Impairment right forearm and wrist pain Impairment UE Quickdash disability index score 23% Short Term Goal (STG) Decrease score to no greater than 15% as measure of improved activity tolerance and function of right UE STG Duration 09/05/23 Geotechnical Engineer Goal (LTG) Decrease score to no greater than 8% as measure of improved activity tolerance and function right UE LTG Duration 10/04/23 One Impairment sunday knee pain Impairment 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 LTG Duration 10/04/23 Assessment Summary Assessment Patient presents to PT with function-limiting pain in her bilateral knees and right wrist and forearm. The knee pain has come on gradually and worsens wit her work which involves prolonged standing on a bot. Her wrist and forearm pain is a result of a lifting injury. I feel both weakness and joint hypermobility with significant recurvatum sunday knees in both standing and walking contribute to her knee pain. She doesn't perform any regular exercise program. FEel she will benefit from PT for instruction in postural correction and joint protection and strengtheing for sunday LE's and right UE. Manual therapy and modalities will be utilized PRN especially for patient's right forearm. POC was discussed and patient was in agreement. Due to very high copay patient is interested mostly in education with exercises that she can do on her own to address her dysfunction. Physical Therapy Plan Frequency and Duration Frequency of Treatment 10 visits Duration of treatment (weeks) 8 Plan of Care Start Date 08/05/23 Plan of Care End Date 10/04/23 Therapeutic Interventions Therapeutic Interventions Home Exercise Program,Manual Therapy,Patient/Caregiver Education,Self-Care/Home Management,Soft Tissue Mobilization,Taping, Therapeutic Activities, Therapeutic Exercises Modalities Cold Pack/Ice Massage,Electric Stimulation,Hot Packs, Infrared Therapy,Ultrasound Next Visit Focus/Plan Next Note Type Treatment Note Next Visit Plan Complete objective tests and measures to include wrist strength and knee joint ligamentous testing. Review exercises given today and progress as tolerated. Provide manual therapy to right forearm to decrease muscle tension. Issue written HEP.
--- NOTE | 2023-08-05 17:37 | PT.OPPOC ---
Physical, Occupational & Speech Therapy At [facility] Current Diagnoses Pain in right wrist (08/05/23) Pain in right knee (08/05/23) Pain in left knee (08/05/23) Pain in right ankle and joints of right foot (08/05/23) Pain in left ankle and joints of left foot (08/05/23) Visit Care Team Role Provider Type Linda Golden MD Attending Provider Physician Family Provider Primary Care Provider Referring Provider Specialty: Family Practice Obstetrics Address: [address] [place] [address], [id number] Email: [email or web address] Plan Of Care PT-OP-T Assessment and Plan Start: 08/04/23 10:09 Freq: Status: Active Protocol: Document 08/05/23 08:07 HENRIQUE (Rec: 08/05/23 09:01 [facility] [id number]) Physical Therapy Assessment Rehab Potential Rehabilitation Potential Good Evaluation Complexity Number of Personal Factors/Comorbidities 1-2 Number of Body Systems Impaired 3 Clinical Presentation at Evaluation Evolving Impairments Impairments Activity Tolerance,Gait,Pain, Strength Goals Four Impairment joint hypermobility and postural dysfunction Impairment patient stands and walks with recurvatum sunday knees contributing to pain and dysfunction. Hypermobility throughout body Short Term Goal (STG) Patient to be instructed in neutral posture neutral posture and joint protection STG Duration 09/05/23 Mcfp Goal (LTG) Patient to demonstrate 75% decrease in recurvatum in both standing and walking for improved joint health LTG Duration 10/04/23 Three Impairment weakness Impairment weakness sunday hips and knees contriuting to lack of joint stability and pain Short Term Goal (STG) Patient to be instructed in HEP for purposes of strengthening and stabilization of sunday LE's, right forearm and wrist STG Duration 09/05/23 Air Intercept Controller Goal (LTG) Patient to be independent and compliant with HEP and demonstrate improvement in strength to 5/5 LTG Duration 10/04/23 Two Impairment right forearm and wrist pain Impairment UE Quickdash disability index score 23% Short Term Goal (STG) Decrease score to no greater than 15% as measure of improved activity tolerance and function of right UE STG Duration 09/05/23 Air Intercept Controller Goal (LTG) Decrease score to no greater than 8% as measure of improved activity tolerance and function right UE LTG Duration 10/04/23 One Impairment sunday knee pain Impairment 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 LTG Duration 10/04/23 Assessment Summary Assessment Patient presents to PT with function-limiting pain in her bilateral knees and right wrist and forearm. The knee pain has come on gradually and worsens wit her work which involves prolonged standing on a bot. Her wrist and forearm pain is a result of a lifting injury. I feel both weakness and joint hypermobility with significant recurvatum sunday knees in both standing and walking contribute to her knee pain. She doesn't perform any regular exercise program. FEel she will benefit from PT for instruction in postural correction and joint protection and strengtheing for sunday LE's and right UE. Manual therapy and modalities will be utilized PRN especially for patient's right forearm. POC was discussed and patient was in agreement. Due to very high copay patient is interested mostly in education with exercises that she can do on her own to address her dysfunction. Physical Therapy Plan Frequency and Duration Frequency of Treatment 10 visits Duration of treatment (weeks) 8 Plan of Care Start Date 08/05/23 Plan of Care End Date 10/04/23 Therapeutic Interventions Therapeutic Interventions Home Exercise Program,Manual Therapy,Patient/Caregiver Education,Self-Care/Home Management,Soft Tissue Mobilization,Taping, Therapeutic Activities, Therapeutic Exercises Modalities Cold Pack/Ice Massage,Electric Stimulation,Hot Packs, Infrared Therapy,Ultrasound Next Visit Focus/Plan Next Note Type Treatment Note Next Visit Plan Complete objective tests and measures to include wrist strength and knee joint ligamentous testing. Review exercises given today and progress as tolerated. Provide manual therapy to right forearm to decrease muscle tension. Issue written HEP. Plan of Care Dates Plan of Care Start Date 08/05/23 Plan of Care End Date 10/04/23 Electronically Signed by: Francesca Zuleta, PT 08/05/23 8800 If you are in agreement with this Plan of Care, please return a signed and dated copy. I have reviewed this Plan of Care and certify that the skilled therapy services above are required to meet the patient?s needs. Physician Signature Date Printed Name and Credentials Clinical Instructor Signature Printed Name and Credentials
--- NOTE | 2023-08-06 10:25 | PT.OTN ---
Current Diagnoses Pain in right wrist (08/06/23) Pain in right knee (08/06/23) Pain in left knee (08/06/23) Pain in right ankle and joints of right foot (08/06/23) Pain in left ankle and joints of left foot (08/06/23) Physical Therapy Treatment Note PT-OP-A Visit Information Start: 08/04/23 10:09 Freq: Status: Active Protocol: Document 08/07/23 10:03 [facility] (Rec: 08/07/23 10:20 [facility] [id number]) Out-Patient Physical Therapy Visit Information Visit Information Visit Type Treatment Note Visit Start Time 13:45 Visit Stop Time 14:30 Visit Number 2 PT-OP-B Current Condition Start: 08/04/23 10:09 Freq: Status: Active Protocol: Document 08/07/23 10:03 [facility] (Rec: 08/07/23 10:20 [facility] [id number]) Current Condition History of Current Condition Onset Date 2 years Current Complaints sunday knee pain, ankle pain and weakness, right forearm pain History of Current Condition 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 Wears braces that help some. Has always had weak ankles, can just fall over easily, more right than left. No exercises besides walking and working on boat. Wears metatarsal pad right, tends to lift big toe (top of shoe worn). Regarding right forearm and wrist pain patient states she was wearing tight bracelet, was lifting something heavy and felt a pop . Was working as a personal investment adviser, had to wear brace. Pain mostly in her forearm, feels tight, some better with massage. Prior Treatments and Tests None except wearing braces on knees and wrist, some ice and heat. PT-OP-J Posture/Palpation/Skin Start: 08/04/23 10:09 Freq: Status: Active Protocol: Document 08/05/23 08:07 [facility] (Rec: 08/05/23 09:01 [facility] [id number]) Posture Evaluation Position Standing Head/C-Spine Posture Forward Head L-Spine Posture Increased Lordosis Shoulder Posture (L) Rounded,(R) Rounded Scapula Posture (L) Protracted,(R) Protracted Arm Posture (L) Internally Rotated,(R) Internally Rotated Hip Posture (L) Neutral,(R) Neutral Knee Posture (L) Genu Recurvatum,(R) Genu Recurvatum Patellar Posture (L) Laterally Tilted,(R) Laterally Tilted Foot Arch (L) Low Arch,(R) Low Arch Comments Posture Comments right PSIS moves further with forward flexion trunk Palpation Assessment Location right forearm Palpation Location dorsal Palpation Findings Soft Tissue Tightness knees Palpation Details no tenderness to palpation PT-OP-M Strength Start: 08/04/23 10:09 Freq: Status: Active Protocol: Document 08/05/23 08:07 [facility] (Rec: 08/05/23 09:01 [facility] [id number]) Elbow/Forearm Strength Elbow and Forearm Manual Muscle Testing sunday Flexion (C6) 4+ Good+ Extension (C7) 4+ Good+ Pronation 4+ Good+ Supination 4+ Good+ Comments denies pain Wrist Strength Wrist Manual Muscle Testing Right Flexion (C7) 4 Good Extension (C6) 4- Good- Ulnar Deviation 4 Good Radial Deviation 4 Good Left Flexion (C7) 5 Normal Extension (C6) 5 Normal Ulnar Deviation 4+ Good+ Radial Deviation 4+ Good+ Hip Strength Hip Manual Muscle Testing Left Flexion (L2) 4 Good Extension (S1) 4- Good- Abduction 4 Good Adduction 4- Good- External Rotation 4 Good Internal Rotation 4+ Good+ Right Flexion (L2) 4- Good- Extension (S1) 4- Good- Abduction 4 Good Adduction 4- Good- External Rotation 4 Good Internal Rotation 4+ Good+ Knee Strength Knee Manual Muscle Testing Left Flexion (S2) 4 Good Extension (L3) 4 Good Right Flexion (S2) 4 Good Extension (L3) 4 Good Ankle/Foot Strength Ankle and Foot Manual Muscle Testing Left Dorsiflexion (L4) 4 Good Plantarflexion (S1) 4 Good Inversion 4 Good Eversion (S1) 4 Good Right Dorsiflexion (L4) 4 Good Plantarflexion (S1) 4 Good Inversion 4 Good Eversion (S1) 4 Good PT-OP-Q Treatments Start: 08/04/23 10:09 Freq: Status: Active Protocol: Document 08/07/23 10:03 [facility] (Rec: 08/07/23 10:20 [facility] [id number]) Cardio Equipment Treadmill Duration (Minutes) 3 Speed 1.7 Incline 0 Therapeutic Exercises Supine Exercises bridge Supine Exercise Name dbl and single Reps/Minutes 10x Comments segmental bicycle Reps/Minutes 10x Comments cues for core activation Sitting Exercises forearm prone/sup Resistance hammer Equipment Used table Reps/Minutes 10x wrist ext Reps/Minutes 10x wrist flex Equipment Used table for forearm support Reps/Minutes 10x Standing Exercises monster walks Standing Exercise Name side, f/b Reps/Minutes 10 ft ea stair tap Reps/Minutes 10x lunges Equipment Used mirror Reps/Minutes 10x squats Equipment Used mirror, yardsticks Reps/Minutes 10x2 single leg lift Reps/Minutes 10x Comments mod manual and verbal cues for form Neuro Re-Education Treatment Balance Activities SLS Surface firm Reps/Duration 2 min Comments with different UE positions, EO, EC Self-Care/Home Management Treatment Education Other Education cues throughout session for knee alignment, soft knees PT-OP-T Assessment and Plan Start: 08/04/23 10:09 Freq: Status: Active Protocol: Document 08/07/23 10:03 [facility] (Rec: 08/07/23 10:20 [facility] [id number]) Physical Therapy Assessment Impairments Impairments Activity Tolerance,Gait,Pain, Strength Goals Four Impairment joint hypermobility and postural dysfunction Impairment patient stands and walks with recurvatum sunday knees contributing to pain and dysfunction. Hypermobility throughout body Short Term Goal (STG) Patient to be instructed in neutral posture neutral posture and joint protection STG Duration 09/05/23 Care Home Goal (LTG) Patient to demonstrate 75% decrease in recurvatum in both standing and walking for improved joint health LTG Duration 10/04/23 Three Impairment weakness Impairment weakness sunday hips and knees contriuting to lack of joint stability and pain Short Term Goal (STG) Patient to be instructed in HEP for purposes of strengthening and stabilization of sunday LE's, right forearm and wrist STG Duration 09/05/23 Chemical Processor Goal (LTG) Patient to be independent and compliant with HEP and demonstrate improvement in strength to 5/5 LTG Duration 10/04/23 Two Impairment right forearm and wrist pain Impairment UE Quickdash disability index score 23% Short Term Goal (STG) Decrease score to no greater than 15% as measure of improved activity tolerance and function of right UE STG Duration 09/05/23 Care Home Goal (LTG) Decrease score to no greater than 8% as measure of improved activity tolerance and function right UE LTG Duration 10/04/23 One Impairment sunday knee pain Impairment 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 LTG Duration 10/04/23 Assessment Summary Assessment Patient hasn't done HEP yet due to schedule. Added exercises for core and LE strengthening, balance and kinesthetic awareness with good tolerance,mod verbal, manual, and visual cues for alignment. Gait assessment on treadmill with patient education compensatory movements that may be contributing to pain. She demonstrated good understanding. Told to hold on doing single leg lift due to challenges with form. Issued L1 and L2 TB. REminders throughout session for LE alignment and soft knees. Physical Therapy Plan Frequency and Duration Frequency of Treatment 10 visits Duration of treatment (weeks) 8 Plan of Care Start Date 08/05/23 Plan of Care End Date 10/04/23 Therapeutic Interventions Therapeutic Interventions Home Exercise Program,Manual Therapy,Patient/Caregiver Education,Self-Care/Home Management,Soft Tissue Mobilization,Taping, Therapeutic Activities, Therapeutic Exercises Modalities Cold Pack/Ice Massage,Electric Stimulation,Hot Packs, Infrared Therapy,Ultrasound Next Visit Focus/Plan Next Note Type Treatment Note Next Visit Plan ASsess response to HEP, consider adding clamshell and reverse clamshell, 4 way SLR depending on tolerance. Continue use of mirror for visual feedback with lunge, squat for mechanics. Trial balance machine.
--- NOTE | 2023-10-16 09:50 | PT.OPDS ---
Current Diagnoses Pain in right wrist (08/06/23) Pain in right knee (08/06/23) Pain in left knee (08/06/23) Pain in right ankle and joints of right foot (08/06/23) Pain in left ankle and joints of left foot (08/06/23) Visit Care Team Role Provider Type Linda Golden MD Attending Provider Physician Family Provider Primary Care Provider Referring Provider Specialty: Family Practice Obstetrics Address: [address] [place] [address], [facility] Email: [email or web address] Visit Number Visit Number 2 Discharge Summary PT-OP-B Current Condition Start: 08/04/23 10:09 Freq: Status: Active Protocol: Document 08/07/23 10:03 [facility] (Rec: 08/07/23 10:20 [facility] [id number]) Current Condition History of Current Condition Onset Date 2 years Current Complaints sunday knee pain, ankle pain and weakness, right forearm pain History of Current Condition 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 Wears braces that help some. Has always had weak ankles, can just fall over easily, more right than left. No exercises besides walking and working on boat. Wears metatarsal pad right, tends to lift big toe (top of shoe worn). Regarding right forearm and wrist pain patient states she was wearing tight bracelet, was lifting something heavy and felt a pop . Was working as a day spa manager, had to wear brace. Pain mostly in her forearm, feels tight, some better with massage. Prior Treatments and Tests None except wearing braces on knees and wrist, some ice and heat. PT-OP-J Posture/Palpation/Skin Start: 08/04/23 10:09 Freq: Status: Active Protocol: Document 08/05/23 08:07 [facility] (Rec: 08/05/23 09:01 [facility] [id number]) Posture Evaluation Position Standing Head/C-Spine Posture Forward Head L-Spine Posture Increased Lordosis Shoulder Posture (L) Rounded,(R) Rounded Scapula Posture (L) Protracted,(R) Protracted Arm Posture (L) Internally Rotated,(R) Internally Rotated Hip Posture (L) Neutral,(R) Neutral Knee Posture (L) Genu Recurvatum,(R) Genu Recurvatum Patellar Posture (L) Laterally Tilted,(R) Laterally Tilted Foot Arch (L) Low Arch,(R) Low Arch Comments Posture Comments right PSIS moves further with forward flexion trunk Palpation Assessment Location right forearm Palpation Location dorsal Palpation Findings Soft Tissue Tightness knees Palpation Details no tenderness to palpation PT-OP-M Strength Start: 08/04/23 10:09 Freq: Status: Active Protocol: Document 08/05/23 08:07 [facility] (Rec: 08/05/23 09:01 [facility] [id number]) Elbow/Forearm Strength Elbow and Forearm Manual Muscle Testing sunday Flexion (C6) 4+ Good+ Extension (C7) 4+ Good+ Pronation 4+ Good+ Supination 4+ Good+ Comments denies pain Wrist Strength Wrist Manual Muscle Testing Right Flexion (C7) 4 Good Extension (C6) 4- Good- Ulnar Deviation 4 Good Radial Deviation 4 Good Left Flexion (C7) 5 Normal Extension (C6) 5 Normal Ulnar Deviation 4+ Good+ Radial Deviation 4+ Good+ Hip Strength Hip Manual Muscle Testing Left Flexion (L2) 4 Good Extension (S1) 4- Good- Abduction 4 Good Adduction 4- Good- External Rotation 4 Good Internal Rotation 4+ Good+ Right Flexion (L2) 4- Good- Extension (S1) 4- Good- Abduction 4 Good Adduction 4- Good- External Rotation 4 Good Internal Rotation 4+ Good+ Knee Strength Knee Manual Muscle Testing Left Flexion (S2) 4 Good Extension (L3) 4 Good Right Flexion (S2) 4 Good Extension (L3) 4 Good Ankle/Foot Strength Ankle and Foot Manual Muscle Testing Left Dorsiflexion (L4) 4 Good Plantarflexion (S1) 4 Good Inversion 4 Good Eversion (S1) 4 Good Right Dorsiflexion (L4) 4 Good Plantarflexion (S1) 4 Good Inversion 4 Good Eversion (S1) 4 Good PT-OP-T Assessment and Plan Start: 08/04/23 10:09 Freq: Status: Active Protocol: Document 10/16/23 09:49 [facility] (Rec: 10/16/23 09:50 [facility] [id number]) Physical Therapy Plan Discharge Physical Therapy Discharge Reasons No Longer Attending PT Discharge Comments May benefit from further PT in the future to address her knee pain and instability.
== END 2023-10-17 10:31 | disposition home or self-care (01) ==
LOC: PHYS 13:45
PROVIDERS: Family Provider Student in an Organized Health Care Education/Training Program; PCP Student in an Organized Health Care Education/Training Program; Referring Provider Student in an Organized Health Care Education/Training Program; Visit Provider Student in an Organized Health Care Education/Training Program
DX: M25.561 Pain in right knee (principal); M25.562 Pain in left knee; M25.571 Pain in right ankle and joints of right foot; M25.572 Pain in left ankle and joints of left foot; M25.531 Pain in right wrist
CPT/HCPCS: 97110; 97112; 97162; 97535

== ENCOUNTER → 2024-09-20 08:49 | Outpatient (CLI) | payer BC, SELFPAY ==
[2024-09-20 09:12] LABS: Appearance Urine UA CLEAR; Bilirubin Urine UA NEGATIVE (NEGATIVE); Color Urine UA YELLOW; Glucose Urine UA NEGATIVE (Negative); Ketones Urine UA NEGATIVE (NEGATIVE); Leukocyte Esterase Urine UA TRACE (NEGATIVE); Nitrite Urine UA NEGATIVE (Negative); Occult Blood Urine UA TRACE-INTACT (Negative); Protein Urine UA NEGATIVE (Negative); Specific Gravity Urine UA <=1.005 (1.000-1.035); Urobilinogen Urine UA 0.2 E.U./dL (0.2)
[2024-09-20 09:13] LABS: Urine Volume 10mL (spun); pH Urine UA 5.5 (4.5-8.0)
[2024-09-20 09:14] LABS: Bacteria Urine None Seen; Culture Indicated Urine Cult Not Indicated; RBC Urine None Seen (0-5/HPF); Squamous Epithelial Cell Urine 0-1 /HPF (0-5/HPF); WBC Urine 0-1/HPF (0-5/HPF)
[2024-09-20 09:36] LABS: Add Manual Diff / Slide Review NO; Basophils Absolute Auto 0 /uL (0-100); Basophils Percent Auto 0.7 % (0-2); Eosinophils Absolute Auto 100 /uL (0-450); Eosinophils Percent Auto 2.4 % (2-4); Hematocrit 42.2 % (36-46); Hemoglobin 14.1 g/dL (12.0-16.0); Lymphocytes Absolute Auto 2300 /uL (1100-4500); Lymphocytes Percent Auto 41.5 % (25-40); Mean Corpuscular HGB Conc 33.5 % (30-36); Mean Corpuscular Hemoglobin 31.1 PG (26-34); Mean Corpuscular Volume 92.7 fL (80-100); Monocytes Absolute Auto 600 /uL (0-900); Monocytes Percent Auto 10.4 % (3-14); Neutrophils Absolute Auto 2500 /uL (1500-7000); Platelet Count 273 X10^3/uL (150-400); Red Blood Cell Count 4.55 X10^6/uL (4.0-5.2); Red Cell Distribution Width 13.3 % (11.6-14.8); White Blood Cell Count 5.5 X10^3/uL (4.5-11.0)
[2024-09-20 10:01] LABS: Alanine Aminotransferase 17 IU/L (<35); Albumin 4.7 g/dL (3.5-5.0); Albumin Globulin Ratio 1.8 (1.0-2.8); Alkaline Phosphatase 40 U/L (38-126); Aspartate Aminotransferase 25 IU/L (14-36); BUN Creatinine Ratio 12.8 (6-22); Bilirubin Total 0.7 mg/dL (0.2-1.3); Blood Urea Nitrogen 10 mg/dL (7-17); Calcium 9.8 mg/dL (8.4-10.2); Carbon Dioxide 25 mmol/L (22-32); Chloride 102 mmol/L (98-107); Estimated Glomerular Filt Rate > 60 mL/min (>60); Globulin 2.6 g/dL (1.7-4.1); Glucose 80 mg/dL (70-100); HEMOLYSIS < 15 (0-50); Potassium 4.2 mmol/L (3.4-5.1); Sodium 138 mmol/L (137-145); Total Protein 7.3 g/dL (6.3-8.2)
[2024-09-20 10:28] LABS: TSH w/ Reflex to FT4 1.79 uIU/mL (0.47-4.68)
== END ==
PROVIDERS: Family Provider Student in an Organized Health Care Education/Training Program; PCP Student in an Organized Health Care Education/Training Program; Referring Provider Student in an Organized Health Care Education/Training Program; Visit Provider Student in an Organized Health Care Education/Training Program
DX: N23 Unspecified renal colic (principal); Z13.29 Encounter for screening for other suspected endocrine disorder
CPT/HCPCS: 36415; 80053; 81001; 84443; 85025

== ENCOUNTER → 2024-09-21 09:43 | Outpatient (CLI) | payer BC, SELFPAY ==
--- NOTE | 2024-09-21 09:44 | DI.CT.S_ITS ---
PROCEDURE: CT KIDNEY URETER BLADDER (KUB) INDICATIONS: Ongoing Kidney pain x3 months TECHNIQUE: Axial sections were acquired from the lung bases to the pubic symphysis. Coronal and sagittal reformats were performed. For radiation dose reduction, the following was used: automated exposure control, adjustment of mA and/or kV according to patient size. COMPARISON: And pelvis dated 09/20/2022. FINDINGS: Image quality: Diagnostic. Lower Chest: No significant findings. URINARY: Right Kidney: No stones or hydronephrosis. Right Ureter: No hydroureter. Left Kidney: No stones or hydronephrosis. Left Ureter: No hydroureter. Bladder: Normal wall thickness. No stones. ABDOMEN: Liver: No contour-deforming solid mass. 1.2 cm simple appearing cyst is seen in right hepatic lobe. Gallbladder: No radiopaque gallstones or wall thickening. Biliary ducts: No biliary dilation. Pancreas: No ductal dilation. Spleen: Size is within normal limits. Adrenal Glands: No adrenal nodules. Stomach and Bowel: Normal colonic caliber, without significant wall thickening. Moderate fecal stasis in the colon is seen. No abscess collection. Peritoneum: No abnormal intraperitoneal fluid. No free air. Ventral Wall: No hernia. Abdominal Nodes: No enlarged retroperitoneal or mesenteric lymph nodes. Vessels: Aorta and inferior vena cava are normal in size. PELVIS: Pelvic Organs: Unremarkable. Pelvic Nodes: Unremarkable. Miscellaneous: No inguinal hernias are seen. Bones: No aggressive appearing bony lesions. IMPRESSION: 1. No renal stones or hydronephrosis. No hydroureter. Normal appearing partially distended urinary bladder. 2. No bowel obstruction or abnormal bowel wall thickening. No evidence of acute appendicitis or diverticulitis. [id number] constipation. No free fluid or free air. Dictated by: Johann Yepez M.D. on 09/21/2024 at 10:34 Approved by: Johann Yepez M.D. on 09/21/2024 at 10:37
== END ==
PROVIDERS: Family Provider Student in an Organized Health Care Education/Training Program; PCP Student in an Organized Health Care Education/Training Program; Referring Provider Student in an Organized Health Care Education/Training Program; Visit Provider Student in an Organized Health Care Education/Training Program
DX: K59.00 Constipation, unspecified (principal); K76.89 Other specified diseases of liver; N39.0 Urinary tract infection, site not specified; R30.0 Dysuria; N23 Unspecified renal colic
CPT/HCPCS: 74176

== ENCOUNTER → 2024-12-13 09:09 | Outpatient (CLI) | payer OTHER, SELFPAY ==
--- NOTE | 2024-12-13 09:12 | DI.CT.S_ITS ---
PROCEDURE: CT ABDOMEN PELVIS WO/W CON INDICATIONS: ASYMPTOMATIC MICRO HEMATURIA,LEFT FLANK PAIN TECHNIQUE: Optional 5 mm thick noncontrast images acquired from the diaphragm to the symphysis pubis. After the administration of intravenous contrast, 5 mm thick images acquired from the diaphragm to the symphysis pubis after a 10-minute delay. 2 mm thick coronal and sagittal reformats were then performed of the kidneys and ureters. For radiation dose reduction, the following was used: automated exposure control, adjustment of mA and/or kV according to patient size. COMPARISON: [facility], CT, CT ABDOMEN PELVIS WO CON, 11/27/2021, 9:38. [facility], CT, CT KIDNEY URETER BLADDER (KUB), 09/21/2024, 9:52. [facility], CT, CT ABDOMEN PELVIS W CON, 09/20/2022, 14:35. FINDINGS: Image quality: Diagnostic. Kidneys and Ureters: Both kidneys are normal in size, without hydronephrosis or nephrolithiasis. No perinephric fat stranding. There is normal bilateral renal enhancement. Renal calyces appear normal in morphology when filled with contrast. Opacified portions of both ureters demonstrate normal caliber. Distal ureters are suboptimally opacified. Bladder: Bladder wall thickness is normal. No calcified bladder stones. OTHER: Lower chest: Unremarkable. Liver: No solid mass. Small cysts. Gallbladder: No radiopaque gallstones or wall thickening. Biliary ducts: No biliary dilation. Pancreas: No ductal dilation. Spleen: Size is within normal limits. Adrenal Glands: No adrenal nodules. Stomach and Bowel: The proximal appendix appears dilated measuring 0.9 cm. The distal appendix is not dilated and collapsed. No appendicolith. No periappendiceal inflammatory change. No diverticulitis. No small bowel obstruction. The stomach is within normal limits. Peritoneum: No abnormal intraperitoneal fluid. No free air. Ventral Wall: No hernia. Abdominal Nodes: No retroperitoneal or mesenteric adenopathy by size criteria. Vessels: Aorta and inferior vena cava are normal in size. PELVIS: Pelvic Organs: Anteverted uterus. Pelvic Nodes: No enlarged lymph nodes. Miscellaneous: No inguinal hernias are seen. Bones: No aggressive osseous abnormality. IMPRESSION: 1. No kidney stones. No hydronephrosis. 2. No solid renal mass. No upper urinary tract filling defect. 3. The proximal appendix is dilated and fluid-filled. This could represent an appendiceal mucocele. -Surgical consultation would be helpful. Dictated by: Robert Gilman M.D. on 12/13/2024 at 12:44 Approved by: Robert Gilman M.D. on 12/13/2024 at 12:57
[2024-12-13 09:36] LABS: Estimated Glomerular Filt Rate > 60 mL/min (>60)
== END ==
PROVIDERS: Family Provider Student in an Organized Health Care Education/Training Program; PCP Student in an Organized Health Care Education/Training Program; Referring Provider Urology; Visit Provider Urology
DX: R31.21 Asymptomatic microscopic hematuria (principal); R10.9 Unspecified abdominal pain
CPT/HCPCS: 36415; 74178; 82565; Q9967